=== PATIENT | male | born 1970 | race Caucasian/White ===

== ENCOUNTER 2021-08-08 14:24 | Emergency (ER) | payer BC ==
[2021-08-08] MEDS ORDERED: Bupivacaine 0.5% 10 ML SDV INJECT ONE (16:15)
[2021-08-08] MEDS ORDERED: Bacitracin Oint 1 GM U/D Packet TOP ONE (16:16)
== END 2021-08-08 16:53 | disposition home or self-care (01) ==
LOC: MW.ED 14:24
DX: S62.636A Displaced fracture of distal phalanx of right little finger, initial encounter for closed fracture (principal); W18.30XA Fall on same level, unspecified, initial encounter
CPT/HCPCS: 64450; 73130; 99283; J3490